=== PATIENT | female | born 1985 | race African-American/Black ===

== ENCOUNTER 2023-05-20 18:28 | Emergency (ER) | payer BC ==
[2023-05-20 20:04] LABS: APPEARANCE,URINE CLEAR (CLEAR); BILIRUBIN,URINE NEGATIVE (NEGATIVE); COLOR,URINE YELLOW (YELLOW); GLUCOSE,URINE NEGATIVE (NEGATIVE); KETONES,URINE NEGATIVE (NEGATIVE); LEUKOCYTE ESTERASE,URINE NEGATIVE (NEGATIVE); NITRITE,URINE NEGATIVE (NEGATIVE); OCCULT BLOOD,URINE NEGATIVE (NEGATIVE); PROTEIN,URINE NEGATIVE (NEGATIVE); UROBILINOGEN,URINE 0.2 EU/dL (0.2)
[2023-05-20 20:04] LABS: BASOPHILS PERCENT AUTO 0.5 % (0.2-1.2); EOSINOPHILS ABSOLUTE AUTO 0.1 x10^3/uL (0.0-0.5); EOSINOPHILS PERCENT AUTO 1.8 % (0.0-4.0); HEMATOCRIT 36.2 % (33.0-47.0); HEMOGLOBIN 12.4 g/dL (12.0-16.0); IMMATURE GRAN ABSOLUTE AUTO 0.04 x10^3/uL (0.00-0.07); LYMPHOCYTES ABSOLUTE AUTO 2.1 x10^3/uL (1.0-4.8); LYMPHOCYTES PERCENT AUTO 27.2 % (25.0-50.0); MEAN CORPUSCULAR HEMOGLOBIN 30.2 pg (26.0-32.0); MEAN CORPUSCULAR HGB CONC 34.3 g/dL (32.0-36.0); MEAN CORPUSCULAR VOLUME 88.3 fL (78.0-93.0); MONOCYTES ABSOLUTE AUTO 0.7 x10^3/uL (0.0-0.8); MONOCYTES PERCENT AUTO 9.7 % (2.0-11.0); NEUTROPHILS ABSOLUTE AUTO 4.6 x10^3/uL (1.8-7.7); NEUTROPHILS PERCENT AUTO 60.3 % (50.0-80.0); PLATELET COUNT,PLT 214 x10^3/uL (130-400); WHITE BLOOD CELL COUNT,WBC 7.7 x10^3/uL (4.0-10.0)
[2023-05-20 20:06] LABS: A/G RATIO 0.65; ALANINE AMINOTRANSFERASE,ALT 15 U/L (14-59); ALBUMIN 2.8 g/dL (3.4-5.0); ALKALINE PHOSPHATASE 56 U/L (46-116); ASPARTATE AMNIOTRANSFERASE,AST 10 U/L (15-37); BILIRUBIN TOTAL 0.1 mg/dL (0.2-1.0); BLOOD UREA NITROGEN,BUN 10 mg/dL (7-18); C-REACTIVE PROTEIN 1.37 mg/dL (<=0.50); CALCIUM 9.4 mg/dL (8.5-10.1); CARBON DIOXIDE,CO2 25 mmol/L (21-32); CHLORIDE,CL 104 mmol/L (98-107); CREATININE 0.7 mg/dL (0.55-1.02); GLUCOSE RANDOM 72 mg/dL (70-99); POTASSIUM,K 3.8 mmol/L (3.5-5.1); PROTEIN TOTAL,TP 7.1 g/dL (6.4-8.2); SODIUM,NA 139 mmol/L (136-145)
[2023-05-20 20:07] LABS: ANION GAP 13.8 mmol/L (5-15); ESTIMATED GFR 113 mL/min (>=60)
[2023-05-20] MEDS ORDERED: Sodium Chloride 0.9% 1,000 ML IV ONE (20:24)
[2023-05-20] MEDS ORDERED: Acetaminophen 325 MG Tab PO ONE (20:29)
[2023-05-20] MEDS ORDERED: Cyclobenzaprine 10 MG Tab PO ONE (20:29)
== END 2023-05-20 21:56 | disposition home or self-care (01) ==
LOC: VM.ED 18:28
DX: O99.891 Other specified diseases and conditions complicating pregnancy (principal); R10.30 Lower abdominal pain, unspecified; Z3A.22 22 weeks gestation of pregnancy; Z91.041 Radiographic dye allergy status
CPT/HCPCS: 80053; 81003; 85025; 86140; 96360; 99284; A9270; J7030

== ENCOUNTER 2023-06-10 13:16 | Emergency (ER) | payer BC, MEDICAID ==
[2023-06-10] MEDS ORDERED: Magnesium Sulfate/Water 4 GM in Premix Bag 1 BAG IV ONE (13:30)
[2023-06-10] MEDS ORDERED: Terbutaline 1 MG/ML SDV SUBCUT PRN (13:30)
[2023-06-10] MEDS: Lactated Ringers 1,000 ML IV ONE (13:42)
== END 2023-06-10 13:52 | disposition short-term general hospital (02) ==
LOC: VM.ED 13:16
DX: O60.02 Preterm labor without delivery, second trimester (principal); Z91.041 Radiographic dye allergy status; Z3A.25 25 weeks gestation of pregnancy
CPT/HCPCS: 99285; J7120

== ENCOUNTER 2023-09-19 15:33 | Emergency (ER) | payer BC, MEDICAID ==
[2023-09-19] MEDS ORDERED: Ketorolac 15 MG/ML SDV IVPUSH ONE (16:17)
[2023-09-19] MEDS ORDERED: Metoclopramide 10 MG/2 ML SDV IVPUSH ONE (16:17)
[2023-09-19] MEDS ORDERED: diphenhydrAMINE 50 MG/ML SDV IVPUSH ONE (16:17)
[2023-09-19] MEDS ORDERED: Lactated Ringers 1,000 ML IV ONE (16:18)
== END 2023-09-19 16:45 | disposition left against medical advice (07) ==
LOC: VM.ED 15:33
DX: G43.909 Migraine, unspecified, not intractable, without status migrainosus (principal); Z88.8 Allergy status to other drugs, medicaments and biological substances
CPT/HCPCS: 99283